=== PATIENT | male | born 1960 ===

== ENCOUNTER → 2022-04-25 | Outpatient (CLI) | payer OTHER ==
[~2022-04-25] MED LIST: ASPI81CH PO; OMEP10ER PO; Percocet 5-3251 EACH PO; Zofran Odt8 MG SL
== END | disposition home or self-care (01) ==
LOC: LAB SHORT 13:30 → LAB 13:30
DX: M65.062 Abscess of tendon sheath, left lower leg (principal)
CPT/HCPCS: 87070; 87205

== ENCOUNTER 2024-12-11 08:14 | Day surgery (SDC) | payer OTHER ==
[~2024-12-11] VITALS: Ht 190.5 cm; Wt 119.8 kg
[~2024-12-11 08:14] MED LIST changes: +Lactated Ringer's 1,000 ML IV SCH; +METF500 PO
[2024-12-11 10:07] VITALS: BP 132/83
[2024-12-11] MEDS ORDERED: propofoL 40 ML IV ONE (10:16)
--- NOTE | 2024-12-11 10:21 | NUR ---
Ambulatory in Day Surgery. History, Chart, Medications and Allergies reviewed before start of procedure. Lungs clear T/O to Auscultation. Patient confirms NPO status and agrees with scheduled surgery. Pre-Op teaching done. Pt verbalizes understanding. Patient States Post-Procedure ride home has been arranged.
--- NOTE | 2024-12-11 10:41 | NUR ---
12/11/24 1041 Evangelina Abarca History, Chart, Medications and Allergies reviewed before start of procedure.DFR [facility] PROVIDING ANESTHESIA SEE RECORDS
[2024-12-11] MEDS ORDERED: propofoL 20 ML IV ONE (10:48)
[2024-12-11 11:06] VITALS: BP 141/89
[2024-12-11 11:16] VITALS: BP 129/80
--- NOTE | 2024-12-11 11:30 | NUR ---
Discharge instructions reviewed with patient. Patient verbalizes understanding. Copy given to patient to take home. Patient up to Ambulate independently. Gait steady. Discharged via wheelchair to private car for ride home.ALL BELONGINGS RETURNED TO PATIENT.
== END 2024-12-11 22:49 | disposition home or self-care (01) ==
LOC: ORSCMMR 08:14 → ORD 10:00 → ORSCMMR 10:00
PROVIDERS: Internal Medicine Gastroenterology
PROC: 0DJD8ZZ Inspection of Lower Intestinal Tract, Via Natural or Artificial Opening Endoscopic (ICD-10-PCS; principal; 2024-12-11 10:00)
DX: Z12.11 Encounter for screening for malignant neoplasm of colon (principal); K57.30 Diverticulosis of large intestine without perforation or abscess without bleeding; G47.33 Obstructive sleep apnea (adult) (pediatric); E11.9 Type 2 diabetes mellitus without complications; K21.00 Gastro-esophageal reflux disease with esophagitis, without bleeding; Z79.84 Long term (current) use of oral hypoglycemic drugs; Z79.899 Other long term (current) drug therapy
CPT/HCPCS: 82947; J2704; J7120